=== PATIENT | male | born 1980 | race Caucasian/White ===

== ENCOUNTER → 2018-07-24 | Emergency (ER) | payer OTHER ==
[~2018-07-24] VITALS: Ht 175.3 cm; Wt 68.2 kg
== END ==
LOC: COL.ER 18:25
DX: R60.9 Edema, unspecified (principal)

== ENCOUNTER 2018-07-26 14:24 | Emergency (ER) | payer SELFPAY ==
[~2018-07-26] VITALS: Ht 177.8 cm; Wt 68.2 kg
[2018-07-26 14:26] VITALS: BP 118/75; TEMP 98
[2018-07-26 15:10] LABS: COLLECTION METHOD CLEAN CATCH
[2018-07-26 15:18] LABS: PH 6 (5-8); SQUAMOUS EPITHELIAL None Seen /hpf; URINE APPEARANCE Clear; URINE BACTERIA None Seen /hpf; URINE BILIRUBIN Negative (NEGATIVE); URINE BLOOD Negative (NEGATIVE); URINE COLOR Straw; URINE GLUCOSE Negative (NEGATIVE); URINE KETONE Negative (NEGATIVE); URINE LEUKOCYTE ESTERASE Negative (NEGATIVE); URINE NITRATE Negative (NEGATIVE); URINE PROTEIN(semi-quant) Negative (NEGATIVE); URINE RBC 0-2 /hpf; URINE UROBILINOGEN Negative (NEGATIVE)
[2018-07-26 15:25] LABS: BASO # 0.1 (0.0-0.2); BASO % 0.8 % (0.0-2.0); EOS # 0.1 (0.0-0.7); EOS % 0.4 % (0-4.0); GRAN # 8.2 (1.4-6.5); GRAN % 72.1 % (42.2-75.2); LYMPH # 1.2 (1.2-3.4); LYMPH % 10.6 % (20.0-51.0); MEAN CELL VOLUME 78 fl (80.0-100.0); MEAN CORPUSCULAR HGB CONC 31 g/dl (33.0-37.0); MEAN PLATELET VOLUME 8.3 fl (7.4-10.4); MONO # 1.7 (0.1-0.6); PLATELET COUNT 341 K/mm3 (130-400); RED BLOOD COUNT 3.49 M/mm3 (4.20-5.60); REDCELL DISTRIBUTION WIDTH-CV 18.6 % (11.5-14.5)
[2018-07-26 15:28] LABS: HEMATOCRIT 27.2 % (42.0-52.0); HEMOGLOBIN 8.3 g/dl (13.5-18.0); MEAN CORPUSCULAR HEMOGLOBIN 24 pg (27.0-31.0)
[2018-07-26 15:30] LABS: INR 1.2 (0.8-3.0); PROTHROMBIN TIME 13.1 SECONDS (9.7-12.8)
[2018-07-26 15:39] LABS: ALBUMIN 3.9 gm/dL (3.5-5.0); BILIRUBIN,TOTAL 0.4 mg/dL (0.0-1.0); C-REACTIVE PROTEIN 2.8 mg/dL (0.0-0.9); CALCIUM 8.7 mg/dL (8.4-10.2); CREATININE, serum 0.63 mg/dL (0.66-1.25); POTASSIUM 3.6 mmol/L (3.4-5.0); TOTAL PROTEIN 8.4 gm/dL (6.4-8.2)
[2018-07-26 16:19] LABS: ERYTHROCYTE SEDIMENTATION RATE 98 mm/hr (0-15)
[2018-07-26 17:33] VITALS: PULSE 70
== END 2018-07-26 17:33 | disposition home or self-care (01) ==
LOC: COL.ER 14:24
PROVIDERS: Family Medicine
DX: R60.0 Localized edema (principal); F17.210 Nicotine dependence, cigarettes, uncomplicated
CPT/HCPCS: J7030

== ENCOUNTER 2020-08-26 22:02 | Inpatient (IN) | payer SELFPAY ==
[~2020-08-26] VITALS: Ht 177.8 cm; Wt 70.0 kg
[2020-08-26 23:01] LABS: BASO # 0.1 (0.0-0.2); BASO % 0.7 % (0.0-2.0); EOS % 0.4 % (0-4.0); GRAN % 80.2 % (42.2-75.2); LYMPH # 0.9 (1.2-3.4); LYMPH % 8.9 % (20.0-51.0); MEAN CELL VOLUME 91 fl (80.0-100.0); MEAN CORPUSCULAR HGB CONC 29 g/dl (33.0-37.0); MEAN PLATELET VOLUME 9.1 fl (7.4-10.4); MONO # 0.9 (0.1-0.6); MONO % 9.1 % (1.7-9.3); PLATELET COUNT 159 K/mm3 (130-400); RED BLOOD COUNT 2.89 M/mm3 (4.20-5.60)
[2020-08-26 23:02] LABS: HEMATOCRIT 26.3 % (42.0-52.0); HEMOGLOBIN 7.7 g/dl (13.5-18.0); MEAN CORPUSCULAR HEMOGLOBIN 27 pg (27.0-31.0)
[2020-08-26 23:09] LABS: INR 1.6 (0.8-3.0)
[2020-08-26 23:11] LABS: PARTIAL THROMBOPLASTIN TIME 37.5 SECONDS (26.0-37.0)
[2020-08-26 23:13] LABS: ALBUMIN 3.4 gm/dL (3.5-5.0); BILIRUBIN,TOTAL 6.2 mg/dL (0.0-1.0); CALCIUM 7.9 mg/dL (8.4-10.2); CREATININE, serum 0.47 (0.66-1.25); POTASSIUM 3.3 mmol/L (3.4-5.0); TOTAL PROTEIN 9.1 gm/dL (6.4-8.2)
[2020-08-27] VITALS (968 sets, daily range): BP systolic 99–136; BP diastolic 60–78; PULSE 79–98; TEMP 97.5–98.4; O2SAT 81–100
--- NOTE | 2020-08-27 01:45 | NUR ---
Pt arrived to ICU room 3 via cart with Gali ED RN. Pt able to transfer from the cart to the ICU bed with SBA. Pt oriented to room and call light system. Pt is sitting up in the bed and he denies further needs. Call light within reach.
[2020-08-27 02:10] LABS: MAGNESIUM 1.7 mg/dL (1.6-2.3); PHOSPHOROUS 2.4 mg/dL (2.5-4.5)
[2020-08-27 03:13] LABS: BASO # 0.1 (0.0-0.2); BASO % 0.8 % (0.0-2.0); EOS # 0.1 (0.0-0.7); EOS % 0.9 % (0-4.0); GRAN # 5.8 (1.4-6.5); GRAN % 72.9 % (42.2-75.2); LYMPH # 1.2 (1.2-3.4); LYMPH % 14.8 % (20.0-51.0); MEAN CELL VOLUME 93 fl (80.0-100.0); MEAN CORPUSCULAR HGB CONC 29 g/dl (33.0-37.0); MEAN PLATELET VOLUME 9.3 fl (7.4-10.4); MONO # 0.8 (0.1-0.6); MONO % 10.1 % (1.7-9.3); PLATELET COUNT 121 K/mm3 (130-400); RED BLOOD COUNT 2.52 M/mm3 (4.20-5.60); REDCELL DISTRIBUTION WIDTH-CV 21.6 % (11.5-14.5)
[2020-08-27 03:18] LABS: CALCIUM 8.2 mg/dL (8.4-10.2); CREATININE, serum 0.47 (0.66-1.25); POTASSIUM 3.5 mmol/L (3.4-5.0)
[2020-08-27 03:24] LABS: HEMATOCRIT 23.5 % (42.0-52.0); HEMOGLOBIN 6.8 g/dl (13.5-18.0); MEAN CORPUSCULAR HEMOGLOBIN 27 pg (27.0-31.0)
--- NOTE | 2020-08-27 04:25 | NUR ---
Blood transfusion started at this time. Blood verified with ADRIAN Davis. Will remain at the bedside for the first 15 minutes. Pt educated on the s/sx's of an adverse reaction.
[2020-08-27 06:30] LABS: COLLECTION METHOD CLEAN CATCH
[2020-08-27 06:53] LABS: MUCOUS Present /lpf; PH 6 (5-8); SQUAMOUS EPITHELIAL None Seen /hpf; URINE APPEARANCE Clear; URINE BACTERIA None Seen /hpf; URINE BILIRUBIN Positive (NEGATIVE); URINE BLOOD Negative (NEGATIVE); URINE COLOR Amber; URINE GLUCOSE Negative (NEGATIVE); URINE KETONE 1+ (NEGATIVE); URINE LEUKOCYTE ESTERASE Negative (NEGATIVE); URINE NITRATE Negative (NEGATIVE); URINE PROTEIN(semi-quant) Negative (NEGATIVE); URINE RBC 0-2 /hpf; URINE UROBILINOGEN >=4.0 mg/dL (NEGATIVE); URINE WBC 0-2 /hpf
[2020-08-27 07:06] LABS: TRICYCLIC ANTIDEPRESS URINE NEGATIVE
--- NOTE | 2020-08-27 07:25 | NUR ---
Bedside shift report given to ADRIAN Olvera.
--- NOTE | 2020-08-27 08:04 | NUR ---
Dr. Thao at bedside to see patient. Discussed care and pt status. Dr. Thao made adjustments on vent based on ABG results. Will continue to monitor.
[2020-08-27 08:14] LABS: HEMATOCRIT 26.2 % (42.0-52.0); HEMOGLOBIN 7.8 g/dl (13.5-18.0)
--- NOTE | 2020-08-27 08:54 | NUR ---
Initial visit; Patient thanked Chief Librarian Branch for looking in on him and offering God's blessings. Patient asked for Chief Librarian Branch's card so that he might as for her later.
--- NOTE | 2020-08-27 10:38 | NUR ---
Measurement Coordinator met with the patient to complete intake. The patient lives alone in [place]. The patient denies DME use and is independent. The patient is self pay. The patient does not have a PCP at this and would like to think about setting one up. The patient would like to use [facility] for medications. The patient does not have advanced directives but was interested in a form. Form provided and discussed the importance of completing the form. The patient is not and has no children. The patient has four siblings. Aidee, Viridiana, Emily, and Paulina. Aidee lives in [place] #[phone]. Viridiana lives in [place], [place] and the patient does not have her contact information. Emily lives in [place], [place], the patient does not have her contact information. The patient does not keep in contact with Paulina and does not know where she lives. SW discussed the discharge plan with the patient. Prior to hospitalization the patient [facility] in [place]. Through the assessment the rep at [facility] directed the patient to visit the ED. The patient plans to go there once he is discharged. The patient states his supports are his friends Addie #[phone] and Kenton Tee. NOLA asked the patient if this SW could contact Addie regarding the discharge plan. SW contacted Addie. Addie confirms the patient was to go detox at [facility] and the plan was to return there if able. [facility] was going to hold a bed for the patient but Addie was not sure since the patient is now hospitalized that they would keep the bed. NOLA contacted Dania at [facility]. Dania reports that they were holding the bed but once he was admitted they no longer are holding the bed. Dania reports when the patient is ready for hospital discharge the patient will need to contact [facility] at # [phone] to complete an updated assessment to see if the patient still meets criteria. NOLA collaborated the above information with the patient's nurse. *Discharge disposition at this time* [facility] in [place]. An updated assessment will need to be done to ensure the patient still meets criteria.
--- NOTE | 2020-08-27 11:20 | NUR ---
Patient reported feeling how he does when he "hasn't had a drink". CIWA noted to be a 5. PRN Ativan will be administered per protocol.
--- NOTE | 2020-08-27 13:07 | NUR ---
Slight redness noted to patient's lower left leg. Located on anterior to medial ankle and lewis , however, not noted on back of the calf. No warmth or increased tenderness noted. Hospitalist updated; will just continue to monitor at this time.
--- NOTE | 2020-08-27 14:00 | NUR ---
Assisted up to the bathroom; stated that the Ativan he received alleviated his symptoms effectively for now. Will continue to monitor and reminded patient to nofify staff if he begins to feel withdraw symptoms return.
[2020-08-27 14:35] LABS: IRON,SERUM 24 ug/dL (35-150)
[2020-08-27 14:44] LABS: TOTAL IRON BINDING CAPACITY 268 ug/dL (261-462)
--- NOTE | 2020-08-27 16:00 | NUR ---
Transfered from unit for upper GI scope. Alert and oriented and in no distress upon transfer.
--- NOTE | 2020-08-27 16:05 | NUR ---
Absorption Operator was contacted by SALES AND MARKETING ASSOCIATE who advised patient would like to complete DPOA-HC paperwork. NOLA met with patient and his friend, Addie Tee to review DPOA-HC. Patient verbalized understanding of DPOA-HC and chose to designate his friends, Addie and Hank Randal. NOLA and ADRIAN Hong provided witness signature. NOLA provided original and copies to patient then placed copy in patient's chart. NOLA updated May CAMPBELL on who patient designated.
--- NOTE | 2020-08-27 17:45 | NUR ---
Returned from GI scope. Alert and oriented and in no distress upon return. VS stable; will continue to monitor.
[2020-08-27 17:59] LABS: HEMATOCRIT 25.7 % (42.0-52.0)
--- NOTE | 2020-08-27 20:00 | NUR ---
Assessment complete. Pt is AXO X3, denies having any pain at this time. Pt is sitting up in the bed watching TV at this time and he denies further needs. Call light within reach.
[2020-08-28] VITALS (774 sets, daily range): BP systolic 100–123; BP diastolic 58–80; PULSE 86–93; TEMP 97.7–98.5; O2SAT 75–100
[2020-08-28 04:32] LABS: BASO % 0.7 % (0.0-2.0); EOS # 0.1 (0.0-0.7); EOS % 1.2 % (0-4.0); GRAN # 4.2 (1.4-6.5); GRAN % 70.4 % (42.2-75.2); LYMPH # 1.1 (1.2-3.4); LYMPH % 17.5 % (20.0-51.0); MEAN CELL VOLUME 91 fl (80.0-100.0); MEAN CORPUSCULAR HGB CONC 31 g/dl (33.0-37.0); MEAN PLATELET VOLUME 9.4 fl (7.4-10.4); MONO # 0.6 (0.1-0.6); PLATELET COUNT 112 K/mm3 (130-400); RED BLOOD COUNT 2.83 M/mm3 (4.20-5.60); REDCELL DISTRIBUTION WIDTH-CV 21.2 % (11.5-14.5)
[2020-08-28 04:33] LABS: HEMATOCRIT 25.6 % (42.0-52.0); HEMOGLOBIN 7.8 g/dl (13.5-18.0); MEAN CORPUSCULAR HEMOGLOBIN 28 pg (27.0-31.0)
[2020-08-28 04:40] LABS: INR 1.8 (0.8-3.0); PROTHROMBIN TIME 19.6 SECONDS (9.7-12.8)
[2020-08-28 04:42] LABS: CALCIUM 7.3 mg/dL (8.4-10.2); CREATININE, serum 0.42 (0.66-1.25); MAGNESIUM 1.8 mg/dL (1.6-2.3); POTASSIUM 3.1 mmol/L (3.4-5.0)
[2020-08-28 05:52] LABS: BILIRUBIN,DIRECT 3.6 mg/dL (0.0-0.4)
--- NOTE | 2020-08-28 07:00 | NUR ---
PT RESTING IN BED. VSS. BEDALARM ACTIVE. WILL CONTIUE TO MONITOR.
--- NOTE | 2020-08-28 07:13 | NUR ---
Bedside shift report given to ADRIAN Patel.
--- NOTE | 2020-08-28 12:02 | NUR ---
Addie DURAND bedside with questions regarding court appointments and rehab. Social Work called to help come answer quesitons.
--- NOTE | 2020-08-28 12:57 | NUR ---
SW met with family to discuss concerns. Patient has completed assessment with [facility]; however, patient will be here over the weekend with a paracentesis scheduled for Wednesday 08/30. *Please contact [facility] closer to discharge date to confirm bed status* Patient has court date this and wanted to know if he would be able to still attend treatment or wait until after his court appointment to attend treatment. NOLA instructed patient to contact his court appointed attorey or advocate Sunday to obtain guidance in the matter as NOLA is not a legal expert. Patient/family does have contact and will ask Sunday. NOLA will continue to follow.
--- NOTE | 2020-08-28 16:16 | NUR ---
REPORT CALLED TO RICHAR CAMPBELL. ALL QUESTIONS ANSWERED. PT TRANSPORTED VIA WHEELCHAIR TO ROOM 356. RICHAR MET US IN ROOM AND ORIENTED PT TO ROOM.
--- NOTE | 2020-08-28 16:21 | NUR ---
PATIENT ORIENTED TO ROOM 356 HE DENIES FURTHER NEEDS OR REQUESTS AT THIS TIME. VSS. JUICE AND WATER PROVIDED. BED ALARM ON.
[2020-08-28 18:12] LABS: HEMATOCRIT 25.8 % (42.0-52.0); HEMOGLOBIN 7.8 g/dl (13.5-18.0)
--- NOTE | 2020-08-28 18:28 | NUR ---
SUDHA IS RESTLESS IN THE BED. PRN ATIVAN 0.5MG GIVEN VIA IVP.
--- NOTE | 2020-08-28 19:30 | NUR ---
Patient assessed at this time. Alert and oriented x 4, and able to make needs known. Denies having pain and discomfort at this time. Peripheral INTs to left forearm and right AC flushed. Both sites without redness, warmth, swelling, and pain. Denies having SOB and dyspnea. LS CTA. Respiraitons even and unlabored. HRR. Telemetry in place. Capillary refill less than 3 seconds. Non-tenting skin turgor. BSAx4. Abdomen distended, and non-tender. 2+ edema BLE. High fall risk precuations in place. Resting in bed with call light within reach. Voices no questions, needs, or concerns at this time.
--- NOTE | 2020-08-28 22:26 | NUR ---
Patient given PRN Ativan per alcohol detox protocol at this time. Scored a 4.
[2020-08-29] VITALS (10 sets, daily range): BP systolic 95–114; BP diastolic 56–78; PULSE 83–100; TEMP 97.8–98.6
[2020-08-29 06:17] LABS: BASO # 0.1 (0.0-0.2); BASO % 0.7 % (0.0-2.0); EOS # 0.1 (0.0-0.7); EOS % 1.3 % (0-4.0); GRAN # 5.2 (1.4-6.5); GRAN % 73.4 % (42.2-75.2); LYMPH % 14.1 % (20.0-51.0); MEAN CELL VOLUME 90 fl (80.0-100.0); MEAN CORPUSCULAR HGB CONC 31 g/dl (33.0-37.0); MEAN PLATELET VOLUME 9.6 fl (7.4-10.4); MONO # 0.7 (0.1-0.6); MONO % 10.4 % (1.7-9.3); PLATELET COUNT 131 K/mm3 (130-400); RED BLOOD COUNT 2.97 M/mm3 (4.20-5.60); REDCELL DISTRIBUTION WIDTH-CV 21.5 % (11.5-14.5)
[2020-08-29 06:24] LABS: BILIRUBIN,TOTAL 5.6 mg/dL (0.0-1.0); CALCIUM 7.4 mg/dL (8.4-10.2); CREATININE, serum 0.46 (0.66-1.25); HEMATOCRIT 26.6 % (42.0-52.0); HEMOGLOBIN 8.2 g/dl (13.5-18.0); MEAN CORPUSCULAR HEMOGLOBIN 28 pg (27.0-31.0); POTASSIUM 3.3 mmol/L (3.4-5.0)
--- NOTE | 2020-08-29 06:52 | NUR ---
PATIENT WENT FOR A WALK AND IS NOW UP IN THE CHAIR UNPACKING HIS PERSONAL BAGS. HE DENIES OTHER NEEDS. HE REPORTS THAT HE WAS AWAKE ALL NIGHT AND IS VERY TIRED BUT JUST "CAN'T SLEEP".
--- NOTE | 2020-08-29 08:30 | NUR ---
PATIENT ASSESSMENT COMPLETED. HE IS AWAKE AND VERY TIRED. HE REPORTS THAT HE JUST CAN'T GO TO SLEEP. HE IS ANXIOUS. I WILL GIVEN 0.5MG IVP ATIVAN PER PROTOCOL.
--- NOTE | 2020-08-29 10:00 | NUR ---
PATIENT SLEEPING RESTLESS AT TIMES IN BED.
[2020-08-29 12:56] LABS: HEPATITIS B CORE AB,TOTAL Negative (()); HEPATITIS B SURFACE ANTIBODY <2.0 (()); HEPATITIS B SURFACE ANTIGEN Negative (Negative); HEPATITIS C VIRUS ANTIBODY Negative (Negative)
--- NOTE | 2020-08-29 12:57 | NUR ---
ATE VERY LITTLE FOR LUNCH. HE IS RESTLESS IN BED FEELING ANXIOUS. PRN ATIVAN IVP GIVEN.
--- NOTE | 2020-08-29 18:19 | NUR ---
PATIENT SITTING AT THE SIDE OF THE BED TALKING WITH VISITORS x2. DENIES NEEDS
--- NOTE | 2020-08-29 20:30 | NUR ---
ASSESSESMENT COMPLETE. CIWA SCORED. PT FEELING ANIEXTY THIS EVENING W SOME TREMORS STATES IT COMES AND GOES. PAIN IS GENERALIZED DISCOMFORT IN BODY. DENIES SOA, CHEST PAIN OR DIZZY. DIZZY AT TIME W AMBULATION. ICE WATER AND VITALS. PRN ATIVAN GIVEN. NEEDS MET.
[2020-08-30] VITALS (10 sets, daily range): BP systolic 100–115; BP diastolic 60–75; PULSE 85–95; TEMP 97.6–98.5
--- NOTE | 2020-08-30 05:26 | NUR ---
PT REPORTS HE SLEPT SOME TONIGHT BUT WAS HAVING WEIRD DREAMS. UP TO AMBULATE IN HALLS ABOUT 4AM. CIWA SCORING OF 5 TONIGHT AND TREATED W ATIVAN PER ORDER. NEEDS MET
[2020-08-30 06:18] LABS: BASO # 0.1 (0.0-0.2); BASO % 0.9 % (0.0-2.0); EOS # 0.1 (0.0-0.7); EOS % 1.1 % (0-4.0); GRAN # 4.5 (1.4-6.5); GRAN % 70.1 % (42.2-75.2); LYMPH % 14.8 % (20.0-51.0); MEAN CELL VOLUME 90 fl (80.0-100.0); MEAN CORPUSCULAR HGB CONC 30 g/dl (33.0-37.0); MEAN PLATELET VOLUME 9.1 fl (7.4-10.4); MONO # 0.8 (0.1-0.6); MONO % 12.6 % (1.7-9.3); PLATELET COUNT 148 K/mm3 (130-400); RED BLOOD COUNT 2.78 M/mm3 (4.20-5.60); REDCELL DISTRIBUTION WIDTH-CV 21.5 % (11.5-14.5)
[2020-08-30 06:19] LABS: HEMOGLOBIN 7.6 g/dl (13.5-18.0); MEAN CORPUSCULAR HEMOGLOBIN 27 pg (27.0-31.0)
[2020-08-30 06:31] LABS: ALBUMIN 2.5 gm/dL (3.5-5.0); BILIRUBIN,TOTAL 5.1 mg/dL (0.0-1.0); CALCIUM 7.2 mg/dL (8.4-10.2); CREATININE, serum 0.46 (0.66-1.25); MAGNESIUM 1.6 mg/dL (1.6-2.3); PHOSPHOROUS 2.2 mg/dL (2.5-4.5); POTASSIUM 3.4 mmol/L (3.4-5.0); TOTAL PROTEIN 6.7 gm/dL (6.4-8.2)
--- NOTE | 2020-08-30 07:00 | NUR ---
Report received from ADRIAN Yusuf. Pt in bed room, fully dressed, asking about plan of care, meds given last night and appears anxious. Will continue nicole ontior.
--- NOTE | 2020-08-30 08:01 | NUR ---
Assessment charted. Pt has some yellowing to the sclera on eyes but otherwise is pale. Resting in room but up and down often, per gravity prospector pt likes to keep himself busy andh as a hard time relaxing. INT to LW. BLE are +1 edema and reddened but pt states they are improved. ABD is distended and firm but audible bowels. Pain to BLE, chronic achiness that he reports is mostly there. Denies other needs, consent signed and reviewed POC for possible paracentesis today. Pt agreeable. Will continue to monitor.
--- NOTE | 2020-08-30 15:51 | NUR ---
Sprinkler Worker followed up with [facility] and was advised that since patient has been in the hosptial the last four days, he would no longer be appropriate for a detox bed as he has been detoxing here in the hospital. NOLA contacted [facility]on[facility] who advised they do not have inpatient beds until about mid September. Patient is self pay and has no insurance coverage at this time. NOLA contacted [facility] and left a message to try to facilitate an assessment for services as this is a requirement for patients without insurance coverage. NOLA met with patient to provide update that a [facility] screening will need to be completed to determine if there is state funding available for any services like inpatient treatment. NOLA advised patient that this means he may be discharge home before inpatient treatment placement can be secured. NOLA then contacted patient's Addie DURAND to provide the above update. Addie inquired about private pay cost of inpatient treatment. NOLA contacted Mani, Neonatal Doctor at [facility] in [place] who advised they cost about $7,500 for 14 days of treatment. Mani advised that their water resources business segment leader, Prudence would be available to answer questions if needed. Mani did state that they would likely have bed availability tomorrow. NOLA gave verbal referral and Mani advised he thought patient sounded appropriate for their facility. NOLA also faxed a referral with clinical information. NOLA followed up with Addie who advised she is going to contact some of patient's family of the [facility] to see if funds could be pulled together for patient to private pay for treatment. NOLA advised Addie that per Mani, typically they ask for $5000 up front and a co-signer. NOLA provided Addie with contact information for Prudence Blow Machine Tender Starch Spr[employer] and Addie states she will follow up for detailed information about the financial piece. Addie is a strong support for patient and willing to assist with any follow up needed. NOLA advised Addie that patient will be ready for discharge tomorrow so if inpatient treatment as self pay cannot be arranged, he will be discharged home as the [facility] process takes time and does not necessarily guarantee placement in inpatient treatment. Addie verbalized understanding and states if patient has to be discharged home, he will stay with her and her , Kenton. NOLA advised that if that's the case NOLA would provided AA and outpatient resources. Addie inquired about possible Medicaid for patient so NOLA emailed Sonja Financial Counselor. Discharge Plan: Home vs Self Pay Inpatient Alcohol Treatment. If inpatient cannot be arranged, patient will discharge home with is KIZZY's Addie and Kenton.
--- NOTE | 2020-08-30 16:36 | NUR ---
Pt has been resting off and on most of shift. Friend at bedside this afternoon. Napping off and on and states he is tired. Denies needs, resting in bed, discussed electrolyte replacement, plan of care, and possible dishcarge tomorrow. PT agreeable, will continue to monitor and give bedsdie shift report to nightshift nurse who will resume care.
--- NOTE | 2020-08-30 16:42 | NUR ---
Respiratory Director followed up with Clam Gulchguillermo GUILLEN and was able to schedule a phone assessment with screener, Essence Summers (ph#[phone]) tomorrow at 1030. NOLA contacted patient's DPHOLLEY-Addie to provide update. Addie states she will update patient's other family members and she's glad the assessment will be able to get done while he is here. NOLA also updated RNJuanita about assessment tomorrow morning.
--- NOTE | 2020-08-30 21:36 | NUR ---
ALERT AND OX3. THINKS ITS 9AM OTHERWISE ORIENTATED. HAS GENERALIZED BODY PAIN. EATING WELL, AND DRINKING ENSURE. PM MEDS GIVEN. CIWA SCORE OF 4. 1MG ATIVAN GIVEN. POC DISCUSSED FOR NIGHT. NEEDS MET.
[2020-08-30 22:00] LABS: CERULOPLASMIN 37 mg/dL (20-60)
[2020-08-31] VITALS (10 sets, daily range): BP systolic 102–112; BP diastolic 60–77; PULSE 86–100; TEMP 97.8–98.5
[2020-08-31 02:35] LABS: HEPATITIS AB (HAV) IGG INDEX 0.63 Index (<=1.00)
--- NOTE | 2020-08-31 05:54 | NUR ---
RESTED BETTER TONIGHT. ATIVAN GIVEN PER PROTOCOL. NEEDS MET.
[2020-08-31 07:15] LABS: BASO # 0.1 (0.0-0.2); BASO % 0.9 % (0.0-2.0); EOS # 0.1 (0.0-0.7); GRAN # 5.8 (1.4-6.5); GRAN % 75.4 % (42.2-75.2); LYMPH % 13.2 % (20.0-51.0); MEAN CELL VOLUME 92 fl (80.0-100.0); MEAN CORPUSCULAR HGB CONC 30 g/dl (33.0-37.0); MEAN PLATELET VOLUME 9.6 fl (7.4-10.4); MONO # 0.7 (0.1-0.6); MONO % 9.2 % (1.7-9.3); PLATELET COUNT 148 K/mm3 (130-400); RED BLOOD COUNT 3.08 M/mm3 (4.20-5.60); REDCELL DISTRIBUTION WIDTH-CV 21.7 % (11.5-14.5)
[2020-08-31 07:23] LABS: INR 1.9 (0.8-3.0); PROTHROMBIN TIME 21.4 SECONDS (9.7-12.8)
[2020-08-31 07:32] LABS: HEMATOCRIT 28.4 % (42.0-52.0); HEMOGLOBIN 8.4 g/dl (13.5-18.0); MEAN CORPUSCULAR HEMOGLOBIN 27 pg (27.0-31.0)
[2020-08-31 07:34] LABS: ALBUMIN 2.9 gm/dL (3.5-5.0); BILIRUBIN,TOTAL 5.8 mg/dL (0.0-1.0); CALCIUM 7.5 mg/dL (8.4-10.2); CREATININE, serum 0.44 (0.66-1.25); PHOSPHOROUS 2.6 mg/dL (2.5-4.5); POTASSIUM 3.5 mmol/L (3.4-5.0); TOTAL PROTEIN 7.7 gm/dL (6.4-8.2)
--- NOTE | 2020-08-31 08:47 | NUR ---
Pt is alert an oriented x3. Vital signs stable. Aldactone an Lasix held this am due to low BP readings. Heart tones present and normal, no murmur noted. Lung sounds clear all lobes upon auscultation. Abdomen is soft, non-distended. No complaints at this time.
--- NOTE | 2020-08-31 14:23 | NUR ---
Accounts Payable Technician assisted patient to facilitate a phone call for [facility] assessment with Essence Summers. Following assessment, NOLA obtained patient signatures on releases of information for [facility] then returned the releases to Essence so she can send referrals. Essence is recommending inpatient treatment and will send referrals today. NOLA attended clinical rounds and patient may be ready for discharge pending GI rounding. NOLA met with patient and his DPOA-HC, Kenton to review discharge plan. Kenton advised that Mani at [facility] called and said they would hold a private pay bed until midnight tonight. Kenton advised that patient's sister contacted [facility] in [place] and wanted a referral sent there. NOLA provided this update to Essence who advised the [facility] only takes funding from [employer], which is an opiate program, which patient would not qualify for. Essence advised that [facility] in [place] does not have openings for male beds until January. NOLA advised patient and Kenton that if patient is cleared for discharge, the hospital will not hold him to wait for his inpatient treatment preference.
--- NOTE | 2020-08-31 14:40 | NUR ---
Protection Analyst contacted [facility] and confirmed they have a bed until midnight and are expecting patient if that's what he decides to do. SW was advised that nursing staff can take the down payment by card, check, or bucio. Hospitalist advised SW that patient is ready for discharge but would need follow up labs. NOLA contacted [facility] and was advised their medical delivery driver, Dr. Cuco Fraser could follow and they have the ability to take labs. SW met with patient and Kenton to advise patient is ready for discharge. NOLA advised that if patient does not go to [facility] today, he will be discharged home and will have to wait for [facility] to find a state funded bed. Kenton verbalized understanding and will contact family to make final decision.
[2020-08-31] MEDS ORDERED: ALDACTONE 25MG25 M1 PO ×2 (15:03)
[2020-08-31] MEDS ORDERED: PROTONIX 40MG T40 MG PO (15:03)
[2020-08-31] MEDS ORDERED: NICODERM C21 MG/PATC TD (15:03)
[2020-08-31] MEDS ORDERED: LASIX 20MG TABL20 MG PO ×2 (15:03)
[2020-08-31] MEDS ORDERED: PREDNISOLO15 MG/5 M3 PO (15:03)
[2020-08-31] MEDS ORDERED: MAG-OX 400400 MG/TAB PO ×2 (15:03)
[2020-08-31] MEDS ORDERED: FERRO-TIME325 MG PO (15:03)
[2020-08-31] MEDS ORDERED: DUO-KAPS1 CAP PO ×2 (15:03)
--- NOTE | 2020-08-31 16:33 | NUR ---
The patient is to discharge today, 08/31. NOLA followed up with the patient and his DPOA-HC, Kenton, on decision for private paying for [facility] in [facility] today vs returning home and waiting on state funding inpatient alcohol treatment. Jose R reports that the patient's sister lives on the [facility] and she is contacting inpatient alcohol treatment centers herself to see if there are other options. He reports that they are leaning towards going to [facility], but are not 100% sure and will not know until the patient's sister gets off of work. NOLA asked that Jose R notify staff as soon as they have made a decision. The patient's RN or Dining Room Tables Set Up Attendant will need to fax the patient's d/c orders to [facility], if they do decide to go there tonight. NOLA notified the patient's RN and Dining Room Tables Set Up Attendant of this and provided them with the fax# to [facility].
--- NOTE | 2020-08-31 17:07 | NUR ---
AWAITING PT DECISION REGARDING REHAB FOR DISCHARGE, PT SCORING 3-4 ON DETOX SCALE DURING SHIFT, OVERALL PLEASANT, SHUFFLED GAIT, ACTIVE IN ROOM, TELE ON PT, MEDS GIVEN, IF PT DECIDES TO PAY FOR PRIVATE REHAB WILL HAVE TO FAX OVER DC ORDERS TO FACILITY BEFORE PT LEAVING HOSPITAL, NO OTHER NEEDS.
--- NOTE | 2020-08-31 18:33 | NUR ---
PT AND PT FAMILY STILL TRYING TO DECIDE DISCHARGE STATUS, INFORMED THEM THAT THEY ARE DISCHARGED AND WOULD HAVE TO LEAVE TONIGHT.
--- NOTE | 2020-08-31 19:07 | NUR ---
iv discontinued, discharge education provided, orders faxed over to private pay facility, pt escorted out with belongings via wheelchair, no other needs at this time.
[2020-09-01 11:31] LABS: ANTISMOOTH MUSCLE ANTIBODY Negative (Negative)
--- NOTE | 2020-09-02 10:28 | NUR ---
Brick Paving Checker received an email from Essence Zimmerman which advised [facility] would have a bed available on 09[facility]18/20. NOLA advised Essence that patient has discharged from the hospital. NOLA notified patient's DPOA-HC, Addie who will make contact with Essence. Addie did advise that patient is currently at [facility] in [place].
[2020-10-02] MEDS ORDERED: NEURONTIN300 MG/CAP PO ×2 (09:12)
[2020-10-02] MEDS ORDERED: PROTONIX 40MG T40 MG PO (09:12)
== END 2020-08-31 19:00 | disposition home or self-care (01) | DRG 432 ==
LOC: COL.ER 22:02 → ICU 08-27 00:34 → MEDICAL 08-28 15:56
PROVIDERS: Emergency Medicine; Internal Medicine Gastroenterology; Nurse Practitioner Family; Physician Assistant; ADMIT Student in an Organized Health Care Education/Training Program
PROC: 0DBN8ZZ Excision of Sigmoid Colon, Via Natural or Artificial Opening Endoscopic (ICD-10-PCS; 2020-08-27)
PROC: 0DB98ZX Excision of Duodenum, Via Natural or Artificial Opening Endoscopic, Diagnostic (ICD-10-PCS; principal; 2020-08-27 14:30)
PROC: 0DB68ZX Excision of Stomach, Via Natural or Artificial Opening Endoscopic, Diagnostic (ICD-10-PCS; 2020-08-27 14:30)
DX: K70.11 Alcoholic hepatitis with ascites (principal); K29.01 Acute gastritis with bleeding; F10.239 Alcohol dependence with withdrawal, unspecified; K76.6 Portal hypertension; E87.2 Acidosis; E87.1 Hypo-osmolality and hyponatremia; E44.0 Moderate protein-calorie malnutrition; K22.10 Ulcer of esophagus without bleeding; K70.31 Alcoholic cirrhosis of liver with ascites; F17.210 Nicotine dependence, cigarettes, uncomplicated; K64.4 Residual hemorrhoidal skin tags; E87.6 Hypokalemia; E83.39 Other disorders of phosphorus metabolism; E83.42 Hypomagnesemia; K64.3 Fourth degree hemorrhoids; R91.1 Solitary pulmonary nodule; R53.81 Other malaise; D12.5 Benign neoplasm of sigmoid colon; F41.9 Anxiety disorder, unspecified; D50.9 Iron deficiency anemia, unspecified; E16.2 Hypoglycemia, unspecified; Z68.22 Body mass index [BMI] 22.0-22.9, adult; K44.9 Diaphragmatic hernia without obstruction or gangrene; Z20.822 Contact with and (suspected) exposure to COVID-19; Y90.5 Blood alcohol level of 100-119 mg/100 ml
CPT/HCPCS: 99223-AI; 99232-AI; 99233-AI; 99239; C9113; J0696; J2060; J2704; J3411; J3475; J3480; J7030; J7040; J7050; J7510; P9016; Q9967

== ENCOUNTER 2020-09-27 13:43 | Inpatient (IN) | payer MEDICAID, OTHER ==
[~2020-09-27] VITALS: Ht 177.8 cm; Wt 65.4 kg
[~2020-09-27 13:43] MED LIST: ALDACTONE 25MG25 M1 PO; DUO-KAPS1 CAP PO; FERRO-TIME325 MG PO; LASIX 20MG TABL20 MG PO; MAG-OX 400400 MG/TAB PO; NICODERM C21 MG/PATC TD; PREDNISOLO15 MG/5 M3 PO; PROTONIX 40MG T40 MG PO
[2020-09-27 14:44] LABS: BASO % 0.4 % (0.0-2.0); EOS % 0.5 % (0-4.0); GRAN # 5.4 (1.4-6.5); GRAN % 72.2 % (42.2-75.2); HEMOGLOBIN 10.2 g/dl (13.5-18.0); LYMPH # 1.3 (1.2-3.4); LYMPH % 16.9 % (20.0-51.0); MEAN CELL VOLUME 82 fl (80.0-100.0); MEAN CORPUSCULAR HEMOGLOBIN 27 pg (27.0-31.0); MEAN CORPUSCULAR HGB CONC 33 g/dl (33.0-37.0); MEAN PLATELET VOLUME 8.3 fl (7.4-10.4); MONO # 0.7 (0.1-0.6); MONO % 9.5 % (1.7-9.3); PLATELET COUNT 117 K/mm3 (130-400); RED BLOOD COUNT 3.74 M/mm3 (4.20-5.60); REDCELL DISTRIBUTION WIDTH-CV 20.7 % (11.5-14.5)
[2020-09-27 14:50] LABS: HEMATOCRIT 30.6 % (42.0-52.0)
[2020-09-27 14:57] LABS: INR 2.3 (0.8-3.0); PROTHROMBIN TIME 25.4 SECONDS (9.7-12.8)
[2020-09-27 14:59] LABS: ALANINE AMINOTRANSFERASE 72 U/L (4-49); ALBUMIN 2.8 gm/dL (3.5-5.0); ALKALINE PHOSPHATASE 185 U/L (50-136); ANION GAP 7 mmol/L (7-16); AST,SGOT 271 U/L (15-37); BILIRUBIN,TOTAL 12.4 mg/dL (0.0-1.0); BLOOD UREA NITROGEN 14 mg/dL (9-20); CALCIUM 7.8 mg/dL (8.4-10.2); CARBON DIOXIDE 23 mmol/L (22-30); CREATININE, serum 0.78 (0.66-1.25); GLUCOSE 94 mg/dL (74-106); LIPASE 482 U/L (23-300); MAGNESIUM 2.1 mg/dL (1.6-2.3); POTASSIUM 4.2 mmol/L (3.4-5.0); TOTAL PROTEIN 7.9 gm/dL (6.4-8.2)
[2020-09-27 15:03] LABS: ALCOHOL(ethanol),MEDICAL < 10 mg/dL; CHLORIDE 88 mmol/L (98-107); SODIUM 118 mmol/L (137-145)
[2020-09-27 15:21] LABS: COLLECTION METHOD CLEAN CATCH
[2020-09-27 15:30] LABS: MUCOUS Present /lpf; PH 5 (5-8); SQUAMOUS EPITHELIAL 0-2 /hpf; URINE APPEARANCE Hazy; URINE BACTERIA Rare /hpf; URINE BILIRUBIN Positive (NEGATIVE); URINE BLOOD Negative (NEGATIVE); URINE COLOR Amber; URINE GLUCOSE Negative (NEGATIVE); URINE KETONE Negative (NEGATIVE); URINE LEUKOCYTE ESTERASE Negative (NEGATIVE); URINE NITRATE Negative (NEGATIVE); URINE PROTEIN(semi-quant) Negative (NEGATIVE); URINE RBC 0-2 /hpf; URINE UROBILINOGEN >=4.0 mg/dL (NEGATIVE)
[2020-09-27 20:13] LABS: CALCIUM 7.8 mg/dL (8.4-10.2); CREATININE, serum 0.64 (0.66-1.25); POTASSIUM 3.9 mmol/L (3.4-5.0)
[2020-09-27 20:15] VITALS: BP 98/55; PULSE 82; TEMP 97.7
[2020-09-27] MEDS ORDERED: NEURONTIN300 MG/CAP PO (22:07)
[2020-09-27] MEDS ORDERED: K-TAB10 PO (22:08)
[2020-09-27] MEDS ORDERED: DESYREL 100MG100 MG PO (22:09)
[2020-09-27 23:23] VITALS: BP 107/64; PULSE 86; TEMP 98.2
[2020-09-28] VITALS (8 sets, daily range): BP systolic 102–113; BP diastolic 40–62; PULSE 76–91; TEMP 98–98.3
--- NOTE | 2020-09-28 01:27 | NUR ---
PT SITTING UP IN BED, A/O X4, C/O OF RESTLESS LEG SYNDROME, GABAPENTIN ADMINISTERED ORDERED, LASIX ADMINISTERED ORDERED, URINAL AT BEDSIDE. NURSE APPLIED RENE TORRE. PT DENIES PAIN, N,V,D. 02 ROOM AIR. NURSE SPOKE WITH PATIENTS SISTER AT APPROXIMATELY 1950 IN REFERENCE TO PATIENTS UPDATED MEDICATION LIST. NURSE UPDATED MEDICATION LIST WITH SISTER AND CONFIRMED WITH PT. PT CURRENTLY EXPRESSES NO ADDITIONAL NEEDS AT THIS TIME. CALL LIGHT WITHIN REACH.
[2020-09-28 02:48] LABS: CALCIUM 7.6 mg/dL (8.4-10.2); CREATININE, serum 0.62 (0.66-1.25); POTASSIUM 4.1 mmol/L (3.4-5.0)
--- NOTE | 2020-09-28 05:32 | NUR ---
PT SLEPT MAJORITY OF THE NIGHT. 02 ROOM AIR. VSS. PT EXPRESSES NO ADDITIONAL NEEDS AT THIS TIME. CALL LIGHT WITHIN REACH.
--- NOTE | 2020-09-28 06:17 | NUR ---
PT SIGNED CONSENT FOR PARACENTESIS. PT VERBALIZES UNDERSTANDING. NURSE REVIEWED PROCEDURE APPROXIMATE TIME. PT EXPRESSES NO ADDITIONAL NEEDS AT THIS TIME. CALL LIGHT WITHIN REACH.
[2020-09-28 06:53] LABS: HEMATOCRIT 27.6 % (42.0-52.0); HEMOGLOBIN 9.2 g/dl (13.5-18.0); MEAN CELL VOLUME 81 fl (80.0-100.0); MEAN CORPUSCULAR HEMOGLOBIN 27 pg (27.0-31.0); MEAN CORPUSCULAR HGB CONC 33 g/dl (33.0-37.0); PLATELET COUNT 119 K/mm3 (130-400); RED BLOOD COUNT 3.39 M/mm3 (4.20-5.60); REDCELL DISTRIBUTION WIDTH-CV 20.8 % (11.5-14.5)
[2020-09-28 07:01] LABS: ALBUMIN 2.4 gm/dL (3.5-5.0); BILIRUBIN,TOTAL 10.7 mg/dL (0.0-1.0); CALCIUM 7.4 mg/dL (8.4-10.2); CREATININE, serum 0.65 (0.66-1.25); TOTAL PROTEIN 7.1 gm/dL (6.4-8.2)
--- NOTE | 2020-09-28 08:30 | NUR ---
PT PLEASANT, AOX4, DENIES PAIN, MEDICATIONS GIVEN, ASSESSMENT PERFORMED, GATORADE BROUGHT IN FOR PT, NO OTHER NEEDS AT THIS TIME. IV SITE CDI W/O ERYTHEMA.
[2020-09-28 09:21] LABS: CREATININE, serum 0.71 (0.66-1.25); POTASSIUM 3.8 mmol/L (3.4-5.0)
--- NOTE | 2020-09-28 09:33 | NUR ---
CRITICAL SODIUM AND CHLORIDE REPORTED TO SHIREEN ALVES AND DR. SEYMOUR
--- NOTE | 2020-09-28 09:58 | NUR ---
PT TAKEN OFF OF FLOOR WITHOUT NOTIFICATION.
--- NOTE | 2020-09-28 10:05 | NUR ---
Initial visit; Patient thanked Earth Sciences Professor for looking in on him and offering prayer and God's blessings. Kermit talked about his orthodoxy affiliation and getting back to taoism. Earth Sciences Professor listened and offered encouragement.
--- NOTE | 2020-09-28 10:55 | NUR ---
PT RETURNED FROM PARACENTESIS, 2L REMOVED. PARA SITE ON R SIDE LEAKING CLEAR YELLOW FLUID. 4X4 AND FOAM TAPE USED TO CREATE PRESSURE DRESSING ON SITE. DAWN AWARE OF LITERS TAKEN OFF AND LEAKING SITE. ORDERED TO HOLD LASIX UNTIL NEPROLOGY ASSESSES PT. VITALS TAKEN.
--- NOTE | 2020-09-28 11:52 | NUR ---
NOLA met with the patient to discuss discharge plan. The patient lives in [place] with his roommate, Cuco Tee. He reports independence with ADLs and does not have any DME. The patient states that he believes his PCP is Dr. Stacey Thao and he receives his medications from [facility]. The patient confirms that he is self pay. NOLA consulted financial counselor, Thais. The patient's DPOA-HC is in EMR. It designates his friend Addie Tee (ph#[phone]). The patient recently discharged from the hospital on 08/31 and went to [facility] in [facility] for inpatient alcohol treatment. The patient reports that he was discharged from [facility] a couple of days ago. He reports that he has been on the go, since his discharge, going to follow up appointments. He reports that he really has not had a chance to settle in back home, since he has been going to all these follow ups. The patient reports that he plans on returning home with his roommate upon discharge. He reports that he plans on going to AA meetings for continued alcohol treatment. He had no other questions or concerns for NOLA at this time. Discharge plan: home with roommate*
[2020-09-28 12:01] LABS: PERITONEAL -POLYMORPHONUCLEAR 19.1 % (0-25); PERITONEAL FLUID RBC 1000 /mm3 (0-0)
--- NOTE | 2020-09-28 12:14 | NUR ---
PT SISTER UPDATED ON PT CONDITION. WANTS TO ADDRESS POSSIBLE NEED FOR PREDNISONE, GI RECOMMENDED IT LAST TIME PT WAS HOSPITALIZED AND SHE SAID IT WAS HELPING.
[2020-09-28 13:59] LABS: CALCIUM 7.8 mg/dL (8.4-10.2); CREATININE, serum 0.61 (0.66-1.25); POTASSIUM 3.9 mmol/L (3.4-5.0)
--- NOTE | 2020-09-28 16:07 | NUR ---
PT REPORTS CONSTIPATION, REQUESTS MILK OF MAG, HAD BM LAST NIGHT. SHIREEN ALVES NOTIFIED AND NEW ORDER WRITTEN.
--- NOTE | 2020-09-28 17:03 | NUR ---
PT PLEASANT, AOX4, EDUCATED OF FLUID RESTRICTION CHANGES, MILK OF MAG GIVEN PER PT REQUEST, PRESSURE DRESSING STILL APPLIED TO PARACENTESIS SITE, PT DENIES PAIN/DISCOMFORT, NO OTHER NEEDS.
--- NOTE | 2020-09-28 18:36 | NUR ---
PT VISITOR FILIPPO (#[phone]) WOULD LIKE A CALL WHEN DOCTORS ENTER ROOM, PT HAVING HARD TIME UNDERSTANDING MEDICAL SITUATION.
[2020-09-28 20:24] LABS: CALCIUM 7.4 mg/dL (8.4-10.2); CREATININE, serum 0.69 (0.66-1.25); POTASSIUM 3.9 mmol/L (3.4-5.0)
--- NOTE | 2020-09-28 22:49 | NUR ---
PT CURRENTLY LAYING IN BED, ALL MEDICATIONS THIS SHIFT ADMINISTERED, ASSESMENT COMPLETE. PT C/O OF GENERAL DISCOMFORT TO PARACENTESIS SITE, PRESSURE DRESSING DC'D FROM SITE, BANDAGE PLACED OVER SITE. SITE IS CURRENTLY FREE OF DRAININAGE, NO HEMATOMA NOTED AROUND SITE. NURSE WILL CONTINUE TO F/U WITH PATIENT. CALL LIGHT WITHIN REACH.
--- NOTE | 2020-09-29 02:44 | NUR ---
PT CALLED NURSE TO REQUEST TO SPEAK TO HER. UPON ENTERING THE ROOM THE PATIENT APPEARED TO BE IN APPARENT DISTRESS. PT STATES " I FEEL WEIRD, NOT PAIN JUST WEIRD". NURSE EVALUATED PT, VSS, PARACENTESIS SITE DISPLAYED NO HEMATOMA, WAS FIRM, AND NO DRAINAGE RECORDED. PT HAS HAD ADEQUATE URINE OUTPUT THUS FAR THIS SHIFT. NURSE COGNITIVELY EVALUATED PT, NO CONFUSION NOTED. PT A/OX4. PT STATED TO NURSE HE FELT ANXIOUS. NURSE OFFERED LEG MESSAGE PT ACCEPTED. NURSE STAYED WITH PT UNTIL HE FELL ASLEEP FOR THE NIGHT. CALL LIGHT WITHIN REACH. NURSE WILL CONTINUE TO MONITOR THROUGH OUT SHIFT.
[2020-09-29 04:31] VITALS: BP 98/51; PULSE 85; TEMP 97.8
[2020-09-29 07:01] LABS: MEAN CELL VOLUME 81 fl (80.0-100.0); MEAN CORPUSCULAR HGB CONC 34 g/dl (33.0-37.0); PLATELET COUNT 97 K/mm3 (130-400); RED BLOOD COUNT 3.55 M/mm3 (4.20-5.60); REDCELL DISTRIBUTION WIDTH-CV 20.6 % (11.5-14.5)
[2020-09-29 07:05] LABS: HEMATOCRIT 28.7 % (42.0-52.0); HEMOGLOBIN 9.8 g/dl (13.5-18.0); MEAN CORPUSCULAR HEMOGLOBIN 28 pg (27.0-31.0)
[2020-09-29 07:18] LABS: INR 2.3 (0.8-3.0); PROTHROMBIN TIME 25.3 SECONDS (9.7-12.8)
[2020-09-29 07:22] LABS: ALBUMIN 2.5 gm/dL (3.5-5.0); CALCIUM 7.2 mg/dL (8.4-10.2); CREATININE, serum 0.67 (0.66-1.25); MAGNESIUM 1.9 mg/dL (1.6-2.3); POTASSIUM 3.7 mmol/L (3.4-5.0); TOTAL PROTEIN 7.5 gm/dL (6.4-8.2)
[2020-09-29 07:33] VITALS: BP 112/55; PULSE 83; TEMP 98
--- NOTE | 2020-09-29 07:50 | NUR ---
REPORT FROM KORY CAMPBELL. PT INDEPENDENT IN ROOM.
--- NOTE | 2020-09-29 11:28 | NUR ---
PT UP INDEPENDENTLY IN ROOM AND HALLS. PT WEIGHTS 70.1 KG.
--- NOTE | 2020-09-29 11:42 | NUR ---
NOLA contacted Dr. Aly office to follow up about whether they are taking new patients or Medicaid patient's at this time. The entry level receptionist reports that they are not. NOLA then attended clinical rounds. The patient's DPOA-HC, Addie, was at bedside. Addie inquired about the severity of the patient's liver disease and if they should be considering palliative care. The hospitalist informed them how the patient has a poor prognosis, but that he is improving at this time. He would not introduce palliative care at this time. The patient and Addie verbalized understanding. NOLA then followed up with the patient and Addie and updated them about the PCPs. SW discussed the option of [facility]. The patient would like some time to think about it and he was interested in obtaining a list of providers in [place]. NOLA provided. PT is also recommending outpatient PT. SW discussed this with the patient. The patient reports that he would like to think about it. NOLA followed up with financial counselor, Thais, about the Medicaid application and FAA. Thais reports that she has left a message with the patient's DPOA-HC, Addie. NOLA went to update Addie and Addie was on the phone. Addie informed SW that she was on the phone with Thais for the Medicaid mahendra.
[2020-09-29 12:03] VITALS: BP 101/58; PULSE 98; TEMP 98
--- NOTE | 2020-09-29 13:54 | NUR ---
hTais, financial counselor, completed the FAA and Medicaid application with the patient and Addie. Thais emailed NOLA the forms the patient needed to sign and the Letter of Support that Addie would need to sign. NOLA presented the forms to the patient. The patient verbalized understanding and signed the forms. Addie had left for the day, but her (Davie) was here, who also supports the patient. Hank completed and signed the Letter of Support form. NOLA emailed the forms back to Thais.
[2020-09-29 15:54] VITALS: BP 109/56; PULSE 89; TEMP 99
[2020-09-29 16:06] LABS: CALCIUM 7.3 mg/dL (8.4-10.2); CREATININE, serum 0.69 (0.66-1.25); POTASSIUM 3.2 mmol/L (3.4-5.0)
--- NOTE | 2020-09-29 17:03 | NUR ---
PT AMBULATING INDEPENDENTLY IN [place] WITH FRIEND.
--- NOTE | 2020-09-29 18:55 | NUR ---
Received report from Poncho. Patient eating his dinner. His friend is at the bedside.
[2020-09-29 19:12] VITALS: BP 106/55; PULSE 86; TEMP 98.5
--- NOTE | 2020-09-29 19:20 | NUR ---
Patient ambulating in the hallway with his friend.
--- NOTE | 2020-09-29 21:20 | NUR ---
Patient called asking if he can have Milk of Magnesia. Called Roya ESCOTO and she said to try to offer Miralax and okay with him. Patient states as long as it is for constipation then he's okay with it. Miralax given instead.
[2020-09-29 21:23] LABS: CALCIUM 7.5 mg/dL (8.4-10.2); CREATININE, serum 0.7 (0.66-1.25); POTASSIUM 3.2 mmol/L (3.4-5.0)
[2020-09-29 23:33] VITALS: BP 101/49; PULSE 73; TEMP 98.2
[2020-09-30 04:36] VITALS: BP 96/52; PULSE 74; TEMP 97.5
--- NOTE | 2020-09-30 06:51 | NUR ---
Patient denies having bowel moovement after Miralax. He prefers milk of magnesia. Will endorse to day shift nurse if they will allow him to have that. Patient aware of latest sodium from last night.
[2020-09-30 06:54] LABS: HEMATOCRIT 26.5 % (42.0-52.0); HEMOGLOBIN 9.2 g/dl (13.5-18.0); MEAN CELL VOLUME 80 fl (80.0-100.0); MEAN CORPUSCULAR HEMOGLOBIN 28 pg (27.0-31.0); MEAN CORPUSCULAR HGB CONC 35 g/dl (33.0-37.0); MEAN PLATELET VOLUME 8.4 fl (7.4-10.4); PLATELET COUNT 101 K/mm3 (130-400); RED BLOOD COUNT 3.33 M/mm3 (4.20-5.60); REDCELL DISTRIBUTION WIDTH-CV 20.7 % (11.5-14.5)
[2020-09-30 07:09] LABS: ALBUMIN 2.3 gm/dL (3.5-5.0); BILIRUBIN,TOTAL 9.8 mg/dL (0.0-1.0); CALCIUM 7.3 mg/dL (8.4-10.2); CREATININE, serum 0.62 (0.66-1.25); POTASSIUM 3.2 mmol/L (3.4-5.0)
--- NOTE | 2020-09-30 07:12 | NUR ---
Patient awake lying in bed at this time. Asked about Milk of Magnesia for constipation, will talk with the doctor. Patient denies any pain, discomfort, or further needs at this time. Will continue to monitor. Call light in reach. Patient continues to be on a 750 ml fluid restriction.
[2020-09-30 07:55] VITALS: BP 99/60; PULSE 84; TEMP 98.2
--- NOTE | 2020-09-30 09:48 | NUR ---
Follow-up visit; Patient states that he was given bad news concerning his health and shared his feelings about his diagnosis and what to expect. Merchandiser Seasonal reminded him of the availability of spiritual care here at the hospital and Merchandiser Seasonal has him in her prayers. Kermit thanked Merchandiser Seasonal.
--- NOTE | 2020-09-30 10:28 | NUR ---
Scheduled medication given. Assessments preformed. Acites present in patient's abdomen, patient C/O sharp abdominal cramping that is relieved by massaging. Rates it a 5/10 and states that it is just an annoyance at this time. Patient denies any further pain or discomfort. +1 edmema on BLE. Patient denies any further needs at this time. Will continue to monitor. VSS. Patient's friend, Kenton, at the bedside. Call light in reach.
[2020-09-30 11:54] VITALS: BP 103/53; PULSE 83; TEMP 97.8
--- NOTE | 2020-09-30 13:38 | NUR ---
NOLA attended clinical rounds. The patient's friend/DPOA-HC, Hank, was at bedside. The team plans to continue diuresis and monitor the patient's sodium levels. NOLA followed up with the patient about a PCP vs [facility]. The patient and Kenton would like to go ahead and get set up at [facility]. NOLA informed them how [facility] would likely be able to get the patient in sooner than [place]. The patient and Hank would like to go ahead and just get set up at the [facility] in [place]. NOLA contacted Phil in [facility] and secured the patient an appointment on 11/25 at 1400. NOLA faxed the patient's records to [facility]. VACA to notify the gunite mixer. NOLA will need to fax the patient's d/c orders to [facility]. VACA to continue to follow. *Discharge plan: home with roommate*
--- NOTE | 2020-09-30 15:06 | NUR ---
NOLA followed up with the patient to discuss outpatient PT. The patient reports that he would like to go ahead and get set up with outpatient PT at [facility] on [facility]. NOLA contacted Natacha at [facility] and secured the patient an outpatient PT appointment on Sunday, 10/08, at 1300. NOLA notified the unit control clerk of the appointment. NOLA will need to fax the patient's d/c orders and FAA to [facility]. .
--- NOTE | 2020-09-30 16:18 | NUR ---
NOLA notified the clinical team of the appointment date at [facility]. The clinical team would want something sooner. NOLA updated the patient's DPOA-HC, Hank. He agreed that the patient should have something sooner and wanted to go ahead and get set up at [facility] in . NOLA contacted [facility] in and secured the patient an appointment there on 10/13, at 1445. NOLA notified the community organization worker of the new appointment and faxed the patient's records to [facility] in . NOLA canceled the appointment at [facility] in [place]. NOLA will need to fax the patient's d/c orders to [facility] in . .
[2020-09-30 17:02] VITALS: BP 104/54; PULSE 74; TEMP 98.9
--- NOTE | 2020-09-30 17:50 | NUR ---
Patient sitting up in bed, family at bedside. Denies any pain, but report pressure in his abdomen. Patient denies any further needs at this time. VSS. Patient A&O. Will continue to monitor. Call light in reach.
[2020-09-30 20:22] VITALS: BP 95/46; PULSE 83; TEMP 99.1
[2020-10-01 00:40] VITALS: BP 94/48; PULSE 80; TEMP 97.9
--- NOTE | 2020-10-01 00:57 | NUR ---
Patient assessed around 2019. Alert and oriented x 4, and able to make needs known. Denies having pain and discomfort at this time. Peripheral INT to left AC. Given Bumex per orders, site without redness, warmth, swelling, and pain. Denies having SOB and dyspnea. LS CTA. Respirations even and unlabored. HRR. Capillary refill less than 3 seconds. Non-tenting skin turgor. BSAx4. Adomen distended and firm. Bandaid to paracentesis site is CDI. 1+ edema bilateral feet. Reminded to use urinal to urinate so that staff can have accurate documentation of output. Voices understanding. Voices no questions, needs, or concerns at this time. Resting in bed with call light within reach.
[2020-10-01 03:40] VITALS: BP 95/45; PULSE 91; TEMP 98.6
--- NOTE | 2020-10-01 06:24 | NUR ---
Patient has denied having pain and discomfort this shift. Voices no questions, needs, or concerns at this time. Has been calling staff to empty urinal as requested by staff.
[2020-10-01 06:52] LABS: INR 2.2 (0.8-3.0); MEAN CELL VOLUME 81 fl (80.0-100.0); MEAN CORPUSCULAR HGB CONC 34 g/dl (33.0-37.0); MEAN PLATELET VOLUME 8.9 fl (7.4-10.4); PLATELET COUNT 117 K/mm3 (130-400); PROTHROMBIN TIME 24.1 SECONDS (9.7-12.8); RED BLOOD COUNT 3.58 M/mm3 (4.20-5.60)
[2020-10-01 06:58] LABS: ALBUMIN 2.7 gm/dL (3.5-5.0); CREATININE, serum 0.73 (0.66-1.25); POTASSIUM 3.2 mmol/L (3.4-5.0); TOTAL PROTEIN 7.9 gm/dL (6.4-8.2)
[2020-10-01 06:59] LABS: HEMATOCRIT 29.1 % (42.0-52.0); HEMOGLOBIN 9.8 g/dl (13.5-18.0); MEAN CORPUSCULAR HEMOGLOBIN 27 pg (27.0-31.0)
[2020-10-01 07:25] VITALS: BP 90/37; PULSE 84; TEMP 98.1
[2020-10-01 07:52] LABS: MAGNESIUM 2.1 mg/dL (1.6-2.3)
--- NOTE | 2020-10-01 07:59 | NUR ---
Patient walking the halls at this time. Denies any pain, discomfort, or SOA. Will continue to monitor. Call light in reach.
[2020-10-01 08:10] LABS: ANISOCYTOSIS 2+; BAND 8 % (0-10); LYMPHOCYTE 13 % (20.0-51.0); NEUTROPHILS 70 % (42.0-75.2); PLATELET ESTIMATE DECREASED (NORMAL)
[2020-10-01 11:52] VITALS: BP 111/62; PULSE 90; TEMP 97.9
[2020-10-01] MEDS ORDERED: ALDACTONE 25MG25 M1 PO ×2 (14:54)
[2020-10-01] MEDS ORDERED: BUMEX 1MG TA1 MG/TA1 PO ×2 (14:55)
[2020-10-01] MEDS ORDERED: FOLIC ACID 11 MG/TA1 PO ×2 (14:55)
[2020-10-01] MEDS ORDERED: THIAMINE 1100 MG/TAB PO ×2 (14:56)
--- NOTE | 2020-10-01 16:41 | NUR ---
The patient to tentatively discharge today, 10/01 with OP services at [facility]. NOLA faxed discharge orders. NOLA faxed discharge orders and discharge summary to [facility]. There are no additional needs.
[2020-10-01 16:50] VITALS: BP 108/59; PULSE 89; TEMP 97.8
--- NOTE | 2020-10-01 19:18 | NUR ---
Scheduled medication given. Assessments preformed. Patient denies any pain, discomfort, or SOA. Does state that he is still experiencing pressure in his abdomen. Patient continues to be on a 750 ml fluid restrict. Patient deemed fit for discharge. Discharge instructions/eduaction given. Patient and family deny any questions or concerns at time of discharge. IV DC'd catheter intact, no signs of phlebitis. VSS. Patient ambulated from building and was escorted by [facility] Staff.
[2020-10-02] MEDS ORDERED: NEURONTIN300 MG/CAP PO ×2 (09:12)
[2020-10-02] MEDS ORDERED: PROTONIX 40MG T40 MG PO (09:12)
== END 2020-10-01 17:00 | disposition home or self-care (01) | DRG 433 ==
LOC: COL.ER 13:43 → MEDICAL 16:14 → COL.ER 17:58 → MEDICAL 10-01 13:53
PROVIDERS: Physician Assistant; ADMIT Student in an Organized Health Care Education/Training Program
PROC: 0W9G3ZZ Drainage of Peritoneal Cavity, Percutaneous Approach (ICD-10-PCS; principal; 2020-09-28)
DX: K70.31 Alcoholic cirrhosis of liver with ascites (principal); E87.1 Hypo-osmolality and hyponatremia; K70.11 Alcoholic hepatitis with ascites; D64.9 Anemia, unspecified; R53.81 Other malaise; E87.6 Hypokalemia; R91.1 Solitary pulmonary nodule; Z87.891 Personal history of nicotine dependence
CPT/HCPCS: 99222-AI; 99232-AI; 99233-AI; 99239; J1940

== ENCOUNTER 2020-10-08 13:12 | Outpatient (RCR) | payer MEDICAID, OTHER ==
[~2020-10-08 13:12] MED LIST changes: +BUMEX 1MG TA1 MG/TA1 PO; +DESYREL 100MG100 MG PO; +FOLIC ACID 11 MG/TA1 PO; +K-TAB10 PO; +NEURONTIN300 MG/CAP PO; +THIAMINE 1100 MG/TAB PO
[2020-10-16] MEDS ORDERED: MYCOGEN TP (19:00)
[2020-10-20] MEDS ORDERED: ROXANOL 20MG20 MG/ML SL (10:52)
[2020-10-20] MEDS ORDERED: TRANSDERM-0.5 MG/21 TD (10:52)
[2020-10-20] MEDS ORDERED: SYSTANE 0.3-0.1 EACH OP (10:52)
[2020-10-20] MEDS ORDERED: LACTULOSE10 GM/153 PO (10:52)
[2020-10-20] MEDS ORDERED: ATIVAN 1MG T1 MG/TAB PO (10:52)
== END 2020-11-02 08:39 | disposition home or self-care (01) ==
LOC: WSC 13:12
DX: K70.10 Alcoholic hepatitis without ascites (principal); E87.1 Hypo-osmolality and hyponatremia; R18.8 Other ascites

== ENCOUNTER 2020-10-16 16:29 | Emergency (ER) | payer MEDICAID, OTHER ==
[~2020-10-16] VITALS: Ht 177.8 cm; Wt 72.3 kg
[2020-10-16 18:07] LABS: BASO # 0.1 (0.0-0.2); BASO % 1.2 % (0.0-2.0); EOS # 0.1 (0.0-0.7); EOS % 2.4 % (0-4.0); GRAN # 2.5 (1.4-6.5); LYMPH % 23.2 % (20.0-51.0); MEAN CELL VOLUME 86 fl (80.0-100.0); MEAN CORPUSCULAR HGB CONC 33 g/dl (33.0-37.0); MEAN PLATELET VOLUME 9.4 fl (7.4-10.4); MONO # 0.5 (0.1-0.6); MONO % 12.7 % (1.7-9.3); PLATELET COUNT 110 K/mm3 (130-400); RED BLOOD COUNT 3.18 M/mm3 (4.20-5.60); REDCELL DISTRIBUTION WIDTH-CV 20.2 % (11.5-14.5)
[2020-10-16 18:11] LABS: HEMATOCRIT 27.4 % (42.0-52.0); HEMOGLOBIN 9.1 g/dl (13.5-18.0); MEAN CORPUSCULAR HEMOGLOBIN 29 pg (27.0-31.0)
[2020-10-16 18:21] LABS: ALBUMIN 2.6 gm/dL (3.5-5.0); BILIRUBIN,TOTAL 8.4 mg/dL (0.0-1.0); C-REACTIVE PROTEIN 1.1 mg/dL (0.0-0.9); CREATININE, serum 0.83 (0.66-1.25); POTASSIUM 3.5 mmol/L (3.4-5.0); TOTAL PROTEIN 7.7 gm/dL (6.4-8.2)
[2020-10-16] MEDS ORDERED: MYCOGEN TP (19:00)
[2020-10-16 19:49] LABS: PERITONEAL -POLYMORPHONUCLEAR 3.6 % (0-25); PERITONEAL FLUID RBC 1000 /mm3 (0-0)
[2020-10-16 20:25] VITALS: BP 97/58; PULSE 72; TEMP 98.8
== END 2020-10-16 20:30 | disposition home or self-care (01) ==
LOC: COL.ER 16:29
PROVIDERS: Family Medicine
DX: R18.8 Other ascites (principal); E87.1 Hypo-osmolality and hyponatremia; B37.2 Candidiasis of skin and nail
CPT/HCPCS: J7030

== ENCOUNTER 2020-10-18 12:12 | Inpatient (IN) | payer MEDICAID, OTHER ==
[~2020-10-18] VITALS: Ht 177.8 cm; Wt 75.7 kg
[2020-10-18] VITALS (67 sets, daily range): BP systolic 87; BP diastolic 56; PULSE 77; TEMP 97.4; O2SAT 93–100
[~2020-10-18 12:12] MED LIST changes: +MYCOGEN TP
[2020-10-18 13:39] LABS: BASO # 0.1 (0.0-0.2); BASO % 1.3 % (0.0-2.0); EOS # 0.1 (0.0-0.7); EOS % 1.8 % (0-4.0); GRAN # 2.2 (1.4-6.5); GRAN % 56.9 % (42.2-75.2); LYMPH # 0.9 (1.2-3.4); MEAN CELL VOLUME 86 fl (80.0-100.0); MEAN CORPUSCULAR HGB CONC 33 g/dl (33.0-37.0); MEAN PLATELET VOLUME 8.7 fl (7.4-10.4); MONO # 0.6 (0.1-0.6); MONO % 15.5 % (1.7-9.3); PLATELET COUNT 114 K/mm3 (130-400); RED BLOOD COUNT 3.04 M/mm3 (4.20-5.60); REDCELL DISTRIBUTION WIDTH-CV 20.2 % (11.5-14.5)
[2020-10-18 13:41] LABS: HEMATOCRIT 26.1 % (42.0-52.0); HEMOGLOBIN 8.7 g/dl (13.5-18.0); MEAN CORPUSCULAR HEMOGLOBIN 29 pg (27.0-31.0)
[2020-10-18 13:42] LABS: ALBUMIN 2.6 gm/dL (3.5-5.0); BILIRUBIN,TOTAL 7.2 mg/dL (0.0-1.0); C-REACTIVE PROTEIN 1.2 mg/dL (0.0-0.9); CALCIUM 8.2 mg/dL (8.4-10.2); CREATININE, serum 1.05 (0.66-1.25); POTASSIUM 3.7 mmol/L (3.4-5.0); TOTAL PROTEIN 7.4 gm/dL (6.4-8.2)
[2020-10-18 19:22] LABS: PROTHROMBIN TIME 21.9 SECONDS (9.7-12.8)
--- NOTE | 2020-10-18 20:45 | NUR ---
Pt arrived to ICU via cart with PIO Jean RN. Pt transferred from the cart to the ICU bed with the assistance of two. Pt oriented to room and call light system. Pt is sitting up in the bed and he denies further needs. Call light within reach.
[2020-10-18 22:14] LABS: MAGNESIUM 2.1 mg/dL (1.6-2.3)
[2020-10-19] VITALS (564 sets, daily range): BP systolic 87–96; BP diastolic 41–53; PULSE 58–94; TEMP 97–98.1; O2SAT 86–100
[2020-10-19 00:42] LABS: ANION GAP 5 mmol/L (7-16); BLOOD UREA NITROGEN 20 mg/dL (9-20); CALCIUM 7.9 mg/dL (8.4-10.2); CARBON DIOXIDE 26 mmol/L (22-30); CHLORIDE 95 mmol/L (98-107); CREATININE, serum 1.01 (0.66-1.25); GLUCOSE 96 mg/dL (74-106); POTASSIUM 3.5 mmol/L (3.4-5.0); SODIUM 126 mmol/L (137-145)
[2020-10-19 00:50] LABS: ALCOHOL(ethanol),MEDICAL < 10 mg/dL
[2020-10-19 01:48] LABS: COLLECTION METHOD CLEAN CATCH
[2020-10-19 01:57] LABS: MUCOUS Present /lpf; PH 5 (5-8); SQUAMOUS EPITHELIAL 0-2 /hpf; URINE APPEARANCE Hazy; URINE BACTERIA None Seen /hpf; URINE BILIRUBIN Negative (NEGATIVE); URINE BLOOD Negative (NEGATIVE); URINE CALCIUM OXALATE CRYSTAL Present /hpf; URINE COLOR Amber; URINE GLUCOSE Negative (NEGATIVE); URINE KETONE Negative (NEGATIVE); URINE LEUKOCYTE ESTERASE Negative (NEGATIVE); URINE NITRATE Negative (NEGATIVE); URINE PROTEIN(semi-quant) Negative (NEGATIVE); URINE RBC 20-50 /hpf
[2020-10-19 02:03] LABS: TRICYCLIC ANTIDEPRESS URINE NEGATIVE
[2020-10-19 06:05] LABS: BASO % 1.3 % (0.0-2.0); EOS # 0.1 (0.0-0.7); EOS % 2.6 % (0-4.0); GRAN # 1.7 (1.4-6.5); GRAN % 54.9 % (42.2-75.2); LYMPH # 0.9 (1.2-3.4); MEAN CELL VOLUME 86 fl (80.0-100.0); MEAN CORPUSCULAR HGB CONC 33 g/dl (33.0-37.0); MEAN PLATELET VOLUME 9.6 fl (7.4-10.4); MONO # 0.4 (0.1-0.6); MONO % 13.2 % (1.7-9.3); PLATELET COUNT 99 K/mm3 (130-400); RED BLOOD COUNT 2.77 M/mm3 (4.20-5.60)
[2020-10-19 06:12] LABS: HEMATOCRIT 23.9 % (42.0-52.0); HEMOGLOBIN 7.9 g/dl (13.5-18.0); MEAN CORPUSCULAR HEMOGLOBIN 29 pg (27.0-31.0)
[2020-10-19 06:14] LABS: CALCIUM 7.7 mg/dL (8.4-10.2); CREATININE, serum 0.84 (0.66-1.25); POTASSIUM 3.9 mmol/L (3.4-5.0)
--- NOTE | 2020-10-19 07:32 | NUR ---
Bedside shift report given to ADRIAN Olvera.
--- NOTE | 2020-10-19 09:07 | NUR ---
NOLA met with the patient and his sister, Viridiana (ph#[phone]), to introduce oneself and to discuss discharge plan. The patient was sleeping. The patient recently discharged from the hospital on 10/01 and returned to his friend/DPOA-HC, Addie Tee, and her 's home. He was set up with outpatient PT and at [facility] in [place] for primary care. Viridiana states that the patient did see the provider, Nuzhat Kim, at [facility] in [place]. Viridiana reports that things were going well at home. He then had lower extremity swelling and had a lot of pain and presented to the ED. A palliative care consult was ordered. The patient's DPOA-HC is in EMR. It designates his friend, Addie Tee (ph#[phone]). Viridiana reports that they would be interested in updating the patient's DPOA-HC to include her, along with Addie, once the patient wakes up. NOLA provided the form. Viridiana reports that they are interested in talking to palliative care and knowing their options for the patient. She was also interested in having a logging superintendent come. Viridiana had no other questions for NOLA at this time. NOLA notified palliative care nurse and logging superintendent services. NOLA then attended clinical rounds. The patient's sister, Viridiana, at bedside. The patient was still sleeping. Also present was Palliative Care Nurse, Samantha, and Child Welfare Worker Dejah. The hospitalist updated Viridiana on the patient's prognosis. Viridiana became tearful and reports that her and the rest of the patient's family are considering palliative care and just want the patient to be comfortable. The team provided support. Viridiana would like to know the options. Samantha and Dejah are with Viridiana now. During his last admission, financial counseling, completed a Medicaid application with the patient and his DPOA-HC. NOLA emailed Thais, with Financial Counseling, to check on the status of the application.
--- NOTE | 2020-10-19 10:28 | NUR ---
I met with sister Viridiana at bedside after Dr Lopez rounded. We talked a little bit about what hospice involves and where those services might be available. Viridiana requested that we wait until Addie arrives to further discuss this. Repair Department Manager Dejah remained with pt at Viridiana's request to talk with pt privately. She reports that he is very private and would not want to share that conversation with the group. Viridiana will let me know when Addie arrives as she is texting her now. Family is aware that Kermit's situation is very, very poor. He has been without alcohol for less than 2 months. Questions about family donating liver were verbalized and referred to their GI specialist/heptologist when established.
--- NOTE | 2020-10-19 10:38 | NUR ---
Thais, financial counselor, reports that the patient's application is pending. She reports that they still need some documents and that the patient and family have until 10/28 to get them in. NOLA updated the patient's sister, Viridiana, and his DPOA-HC, Addie. Addie verbalized understanding and reports that she is aware of the deadline. She states that they are still waiting on the social security.
[2020-10-19 12:38] LABS: CALCIUM 7.9 mg/dL (8.4-10.2); CREATININE, serum 0.76 (0.66-1.25); POTASSIUM 3.9 mmol/L (3.4-5.0)
--- NOTE | 2020-10-19 12:50 | NUR ---
Patient is aware of his situation and verbalizes understanding that his condition is one that we would not be surprised if he would in the next 6 months but that is yet to be determined. We reviewed what hospice services can do, what would be expected under their care, and the fact that he would be giving up on aggressive care if that is the direction he wishes to go. Still wants to explore liver transplant but is aware that this may not be an option for him. Family wants to continue treating his condition now and will talk more to reach a decision about his goals of care by discharge.
--- NOTE | 2020-10-19 13:44 | NUR ---
Initial visit; Patient and his sister expressed that they would like a Project Development Coordinator present to pray with Kermit and purification operator when needed. Project Development Coordinator offered prayer following patient's Physician speaking with his sister as to patient's next steps regarding his personal care plan. Project Development Coordinator will return.
--- NOTE | 2020-10-19 13:47 | NUR ---
Follow-up visit; Patient awake and two sisters were with him along with Palliative Care Nurse. Patient requested further prayer and enjoyed joking back and forth with Executive Advisor. Patient and his family are in the thinking stage at this point looking at options for him. Executive Advisor left card with them and they are comfortable calling Executive Advisor whenever needed.
--- NOTE | 2020-10-19 16:45 | NUR ---
AFter speaking with Dr Lopez this afternoon, Addie and Viridiana requested I come back to bedside to talk with them about hospice. They are really feeling that starting hospice services at home soon would be the best for their brother, Kermit. I had reviewed hospice agencies with them this morning. They will review this list, talk with friends, and try to reach a decision in the morning. Vangie jordan [facility] had confirmed with me thismorning that she had talked with them earlier. I did notify Dr Lopez and Barbie of this decision. Family also requested that a aerial gunner superintendent come in to talk with Kermit again judy and I called Abner Beatty who reported he would be here to talk with them. Also advised Ananya Lara RN of this decision.
--- NOTE | 2020-10-19 18:00 | NUR ---
Ok per Dr. Andrade to make medical status at this time.
[2020-10-19 18:49] LABS: CALCIUM 7.9 mg/dL (8.4-10.2); CREATININE, serum 0.74 (0.66-1.25); POTASSIUM 4.2 mmol/L (3.4-5.0)
--- NOTE | 2020-10-19 20:30 | NUR ---
Assessment complete. Pt is AXO X3, denies having any pain when he is not moving but is visibly uncomfortable when trying to reposition. Report called to ADRIAN Roman, on medical for pt transfer. Pt's sister is at the bedside; all questions answered. Call light within reach.
--- NOTE | 2020-10-19 21:55 | NUR ---
Pt transferred to room 351 via WC with this nurse and pt's sister at this time. ADRIAN Roman, at the bedside.
--- NOTE | 2020-10-19 22:00 | NUR ---
Arrived on unit with ICU nurse, patient is awake, alert, oriented x 3, verbal with clear speech, sister at bedside, kapadia draining yellow urine to bag, abdomen distended, puncture site from previous paracentesis to R lower abdomen, scrotum swollen and excoriated, respirations even and unlabored, updated on plan of care, verbalized understanding.
[2020-10-20 01:52] VITALS: BP 96/51; PULSE 88; TEMP 97.5
[2020-10-20 03:57] VITALS: BP 91/45; PULSE 86; TEMP 98.1
[2020-10-20 05:55] LABS: MEAN CELL VOLUME 87 fl (80.0-100.0); MEAN CORPUSCULAR HGB CONC 33 g/dl (33.0-37.0); MEAN PLATELET VOLUME 8.4 fl (7.4-10.4); PLATELET COUNT 102 K/mm3 (130-400); RED BLOOD COUNT 2.88 M/mm3 (4.20-5.60); REDCELL DISTRIBUTION WIDTH-CV 20.5 % (11.5-14.5)
[2020-10-20 05:58] LABS: HEMATOCRIT 24.9 % (42.0-52.0); HEMOGLOBIN 8.3 g/dl (13.5-18.0); MEAN CORPUSCULAR HEMOGLOBIN 29 pg (27.0-31.0)
[2020-10-20 06:08] LABS: CALCIUM 7.8 mg/dL (8.4-10.2); CREATININE, serum 0.68 (0.66-1.25); POTASSIUM 4.1 mmol/L (3.4-5.0)
[2020-10-20 08:16] VITALS: BP 87/39; PULSE 91; TEMP 98.2
--- NOTE | 2020-10-20 08:21 | NUR ---
Samantha, palliative care nurse, notified SW at the end of day yesterday, 10/19, that the patient has decided to pursue hospice at home. Him and his family are deciding on a hospice agency.
[2020-10-20 08:38] LABS: BAND 3 % (0-10); BASOPHIL 1 % (0-2); EOSINOPHIL 3 % (0-4); LYMPHOCYTE 11 % (20.0-51.0); NEUTROPHILS 70 % (42.0-75.2)
[2020-10-20 08:39] LABS: ANISOCYTOSIS 2+; POIKILOCYTOSIS 2+; TARGET CELLS 2+
[2020-10-20 08:41] LABS: PLATELET ESTIMATE DECREASED (NORMAL)
--- NOTE | 2020-10-20 10:00 | NUR ---
Assessment completed, alert/oriented but forgetful, reports scrotal pain is 10/10, severe scrotal swelling, patient is going comfort care, plan for home hospice discharge today, family present in the room
[2020-10-20] MEDS ORDERED: ROXANOL 20MG20 MG/ML SL (10:52)
[2020-10-20] MEDS ORDERED: ATIVAN 1MG T1 MG/TAB PO (10:52)
[2020-10-20] MEDS ORDERED: TRANSDERM-0.5 MG/21 TD (10:52)
[2020-10-20] MEDS ORDERED: LACTULOSE10 GM/153 PO (10:52)
[2020-10-20] MEDS ORDERED: SYSTANE 0.3-0.1 EACH OP (10:52)
[2020-10-20 11:21] VITALS: BP 96/48; PULSE 91; TEMP 98
--- NOTE | 2020-10-20 12:00 | NUR ---
Follow up visit from the bailiff. No needs right now.
--- NOTE | 2020-10-20 12:21 | NUR ---
Pt and his sisters have requested to go home today and to make arrangements with [facility]. I have contacted Vangie at [facility] and faxed over referral. She is aware that medicaid is pending. Family is requesting a commode and considering a hospital bed. Addie and Viridiana report that they are comfortable caring for him at home if hospice admission cannot be done until or Sunday. I am sending pt home with bedpans and underpads to use until hospice services are started. Still waiting on final word from hospice.
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
--- NOTE | 2020-10-20 14:05 | NUR ---
Vangie with [facility] has contacted Luke by speaker phone and arranged hospice admission in their home on with social work therapist and Sunday with nurse. Family assures me they are comfortable with this. They are anxious to get home. Reymundo will review their discharge instructions, Audelia with [facility] has been here to remove PICC. hollow handle bench workerDory is aware of plan. Comfort quilt provided with explanation.
--- NOTE | 2020-10-20 15:14 | NUR ---
Patient is discharging home with hospice care, PICC line removed by [facility], tele removed, he is leaving with kapadia cath in place, scripts provided for medications, leaving with family members by Private vehicle
--- NOTE | 2020-10-20 16:41 | NUR ---
Heat Treat Technician attended clinical rounds with the team and Lu Singh RN at bedside. Patient would like to discharge home today with [facility]. ADRIAN Singh faxed referral. NOLA followed up with patient along with his sister, Viridiana and friend, Addie who advised they met with [facility] this afternoon and it went well. Addie advised that the SW from [facility] will meet with them tomorrow and and RN from [facility] will come out to the home Sunday. Patient and his family are comfortable with this plan as patient will discharge to Addie's home with support from both Addie and his sister, Viridiana. NOLA inquired about medications and Addie and Viridiana advised that they were given prescriptions for patient and will pay out of pocket for them as patient is still self pay until Medicaid is approved. Patient to transport home by private car. NOLA faxed discharge orders to [facility]. Discharge Plan: Home with Hospice
== END 2020-10-20 15:16 | disposition hospice, home (50) | DRG 433 ==
LOC: COL.ER 12:12 → ICU 18:37 → MEDICAL 10-19 22:00
PROVIDERS: Nurse Practitioner Family; Student in an Organized Health Care Education/Training Program; Surgery; ADMIT Student in an Organized Health Care Education/Training Program
PROC: 02HV33Z Insertion of Infusion Device into Superior Vena Cava, Percutaneous Approach (ICD-10-PCS; principal; 2020-10-19)
DX: K70.31 Alcoholic cirrhosis of liver with ascites (principal); E87.1 Hypo-osmolality and hyponatremia; N50.819 Testicular pain, unspecified; I95.9 Hypotension, unspecified; K72.90 Hepatic failure, unspecified without coma; Z66 Do not resuscitate; Z51.5 Encounter for palliative care; E87.6 Hypokalemia; K70.11 Alcoholic hepatitis with ascites; D53.9 Nutritional anemia, unspecified; R91.1 Solitary pulmonary nodule; R53.81 Other malaise; E87.70 Fluid overload, unspecified; Z87.891 Personal history of nicotine dependence
CPT/HCPCS: 99223-AI; 99233-AI; C1751; J0696; J2270; J2405; J2543; J7030; P9047; Q9967